=== PATIENT | female | born 1955 | race Caucasian/White ===

== ENCOUNTER 2022-10-12 06:48 | Day surgery (SDC) | payer MEDICARE, OTHER ==
[~2022-10-12] VITALS: Ht 162.6 cm; Wt 81.8 kg
[~2022-10-12 06:48] MED LIST: SODIUM CHLORIDE 0.9% 1,000 ML ONE
[2022-10-12] MEDS ORDERED: BENZOCAINE 20% 50 MCG/SPRAY 57 GM TP ONE (06:49)
[2022-10-12] MEDS ORDERED: LIDOCAINE 4% 50 ML SOLUTION TP ONE (06:49)
[2022-10-12] MEDS ORDERED: LIDOCAINE 2% 11 ML JELLY TP ONE (06:49)
[2022-10-12] MEDS ORDERED: SODIUM CHLORIDE 0.9% 1,000 ML IV ONE (07:00)
[2022-10-12] MEDS ORDERED: FentaNYL CITRATE PF 100 MCG/2 ML VIAL ONE (08:04)
[2022-10-12] MEDS ORDERED: MIDAZOLAM HCL 2 MG/2 ML VIAL ONE (08:05)
[2022-10-12 09:33] VITALS: PULSE 68; RESP 17; O2SAT 100
[2022-10-12] MEDS ORDERED: MethylPREDNISolone SOD SUCC 125 MG/2 ML VIAL ONE (09:59)
[2022-10-12] MEDS ORDERED: MethylPREDNISolone SOD SUCC 125 MG/2 ML VIAL IVP ONE (10:00)
== END 2022-10-12 11:25 | disposition home or self-care (01) ==
LOC: SURGERY 06:48
PROVIDERS: ATTEND Internal Medicine Critical Care Medicine
DX: J38.4 Edema of larynx (principal); B37.0 Candidal stomatitis; F17.210 Nicotine dependence, cigarettes, uncomplicated; Z98.890 Other specified postprocedural states; M19.90 Unspecified osteoarthritis, unspecified site; Z79.899 Other long term (current) drug therapy
CPT/HCPCS: 31623; 88112; 87206; 87101; 87220; 87070; 87015; 31624; 71045; J3010; J2250; J2930; Q9967; J7030; Z7610